=== PATIENT | male | born 1975 | race Caucasian/White ===

== ENCOUNTER 2018-03-07 20:43 | Emergency (ER) | payer BC ==
[~2018-03-07] VITALS: Ht 182.9 cm; Wt 105.7 kg
[2018-03-07 20:53] VITALS: BP 156/95
[2018-03-07 22:30] LABS: BASO # 0.1 x10^3/uL (0.0-0.2); BASO % 1 % (0-3); EOS # 0.4 x10^3/uL (0.0-0.7); EOS % 5 % (0-3); HEMATOCRIT 43.7 % (39.0-53.0); HEMOGLOBIN 15.4 g/dL (13.0-17.5); LYMPH # 1.8 x10^3/uL (1.0-4.8); LYMPH % 21 % (24-48); MEAN CORPUSCULAR HEMOGLOBIN 33 pg (25-35); MEAN CORPUSCULAR HGB CONC 35 g/dL (31-37); MEAN CORPUSCULAR VOLUME 92 fL (79-100); MONO # 0.9 x10^3/uL (0.0-1.1); MONO % 10 % (0-9); NEUT # 5.4 x10^3uL (1.8-7.7); NEUT % 64 % (31-73); PLATELET COUNT 228 x10^3/uL (140-400); RED BLOOD COUNT 4.73 x10^6/uL (4.30-5.70); RED CELL DISTRIBUTION WIDTH 12.7 % (11.5-14.5); WHITE BLOOD COUNT 8.6 x10^3/uL (4.0-11.0)
[2018-03-07 22:38] LABS: CALCIUM 9.3 mg/dL (8.5-10.1); CREATININE 1.2 mg/dL (0.7-1.3); GFR 66.7; POTASSIUM 3.8 mmol/L (3.5-5.1)
--- NOTE | 2018-03-07 23:02 | PHYS DOC ---
Past Medical History Past Medical History: Hypertension, Other Additional Past Medical Histor: TANACROSS Past Surgical History: No Surgical History Alcohol Use: Rarely Drug Use: None Adult General Chief Complaint Chief Complaint: LOWER EXTREMITY SWELLING HPI HPI Patient is a 42 year old male with history of hypertension, smoking, who presents today complaining of increased pain and redness to the left lower extremity. Patient states on Sunday this week he was seen at [facility] and was diagnosed with a superficial blood clot in his varicose vein in the left lower extremity, he states he was discharged with aspirin 325 which he is taking daily. He states his noted the area of redness on his leg has grown bigger and has increased pain rated at 3/10 described as throbbing and intermittent. Patient is also concerned this could be an evolving DVT. Patient denies any chest pain or shortness of breath. Denies any recent hospitalizations or surgeries, denies any low air or car rides. Denies any personal family history of DVTs. PCP Dr. Radha Martin Review of Systems Review of Systems Constitutional: Denies fever or chills [] Eyes: Denies change in visual acuity, redness, or eye pain [] HENT: Denies nasal congestion or sore throat [] Respiratory: Denies cough or shortness of breath [] Cardiovascular: No additional information not addressed in HPI [] GI: Denies abdominal pain, nausea, vomiting, bloody stools or diarrhea [] : Denies dysuria or hematuria [] Musculoskeletal: Reports increased pain, and redness to the left lower extremity. Integument: Denies rash or skin lesions [] Neurologic: Denies headache, focal weakness or sensory changes [] All other systems were reviewed and found to be within normal limits, except as documented in this note. Current Medications Current Medications Current Medications Medications (Trade) Dose Ordered Sig/Olive Start Time Stop Time Status Last Admin Dose Admin Cephalexin HCl (Keflex) 500 mg 1X ONCE 03/08/18 00:15 03/08/18 00:16 DC 03/08/18 00:08 500 MG Rivaroxaban (Xarelto) 15 mg 1X ONCE 03/08/18 00:15 03/08/18 00:16 DC 03/08/18 00:08 15 MG Allergies Allergies Allergies Coded Allergies Type Severity Reaction Last Updated Verified No Known Drug Allergies 04/10/14 No Physical Exam Physical Exam Constitutional: Well developed, well nourished, no acute distress, non-toxic appearance. [] HENT: Normocephalic, atraumatic, bilateral external ears normal, oropharynx moist, no oral exudates, nose normal, very TANA[place]OSS Eyes: PERRLA, EOMI, conjunctiva normal, no discharge. [] Neck: Normal range of motion, no tenderness, supple, no stridor. [] Cardiovascular:Heart rate regular rhythm, no murmur [] Lungs & Thorax: Bilateral breath sounds clear to auscultation [] Abdomen: Bowel sounds normal, soft, no tenderness, no masses, no pulsatile masses. [] Skin: Warm, dry, no erythema, no rash. [] Back: No tenderness, no CVA tenderness. [] Extremities: Left lower extremity with no obvious deformity. Proximal jiang with an area of mild erythema roughly 6 cm. The area is warm to touch and slightly tender, negative Homans sign to the left lower extremity. +2 left pedal pulse. Cap refill less than 2 seconds the left toes. Neurologic: Alert and oriented X 3, normal motor function, normal sensory function, no focal deficits noted. [] Psychologic: Affect normal, judgement normal, mood normal. [] Current Patient Data Vital Signs Vital Signs Date Time Temp Pulse Resp B/P (MAP) Pulse Ox O2 Delivery O2 Flow Rate FiO2 03/07/18 20:53 98.7 78 16 156/95 (115) 97 Room Air 98.7 Lab Values Laboratory Tests Test 03/07/18 22:20 White Blood Count 8.6 x10^3/uL (4.0-11.0) Red Blood Count 4.73 x10^6/uL (4.30-5.70) Hemoglobin 15.4 g/dL (13.0-17.5) Hematocrit 43.7 % (39.0-53.0) Mean Corpuscular Volume 92 fL (79-100) Mean Corpuscular Hemoglobin 33 pg (25-35) Mean Corpuscular Hemoglobin Concent 35 g/dL (31-37) Red Cell Distribution Width 12.7 % (11.5-14.5) Platelet Count 228 x10^3/uL (140-400) Neutrophils (%) (Auto) 64 % (31-73) Lymphocytes (%) (Auto) 21 % (24-48) L Monocytes (%) (Auto) 10 % (0-9) H Eosinophils (%) (Auto) 5 % (0-3) H Basophils (%) (Auto) 1 % (0-3) Neutrophils # (Auto) 5.4 x10^3uL (1.8-7.7) Lymphocytes # (Auto) 1.8 x10^3/uL (1.0-4.8) Monocytes # (Auto) 0.9 x10^3/uL (0.0-1.1) Eosinophils # (Auto) 0.4 x10^3/uL (0.0-0.7) Basophils # (Auto) 0.1 x10^3/uL (0.0-0.2) Prothrombin Time 14.0 SEC (11.7-14.0) Prothrombin Time INR 1.1 (0.8-1.1) PTT 32 SEC (24-38) Sodium Level 140 mmol/L (136-145) Potassium Level 3.8 mmol/L (3.5-5.1) Chloride Level 102 mmol/L (98-107) Carbon Dioxide Level 31 mmol/L (21-32) Anion Gap 7 (6-14) Blood Urea Nitrogen 10 mg/dL (8-26) Creatinine 1.2 mg/dL (0.7-1.3) Estimated GFR (Cockcroft-Gault) 66.7 Glucose Level 89 mg/dL (70-99) Calcium Level 9.3 mg/dL (8.5-10.1) Troponin I Quantitative < 0.017 ng/mL (0.000-0.055) Laboratory Tests 03/07/18 22:20 Laboratory Tests 03/07/18 22:20 EKG EKG [] Radiology/Procedures Radiology/Procedures [] Course & Med Decision Making Course & Med Decision Making Pertinent Labs and Imaging studies reviewed. (See chart for details) This is a 42-year-old female patient presenting to the ED today to be evaluated for increased pain and redness to the left lower extremity after being diagnosed with a superficial varicose vein blood clot 4 days ago at [facility]. Patient was encouraged to consider smoking cessation Labs are negative for any acute findings. Waiting for venous Doppler results. 23:[address] Robyn Carlson: Noted lead technologist in cytogenetics read which showed "partial clot and proximal greater saphenous vein 3.4 cm from its origin. Also clot seen in the varicose veins entire length of the calf" FINAL READ:IMPRESSION: 1. Partial obstructing thrombus in the proximal great saphenous vein and obstructing thrombus in the varicose veins throughout its length in the calf. Pedicles veins in the thyroid appear patent. 2. No DVT. Electronically signed by: Jericho Obando DO (03/07/2018 11:55 PM) [facility] DICTATED and SIGNED BY: JERICHO OBANDO DO DATE: 03/07/18 4690 patient is a smoker his swelling and symptoms of progress significantly in the last 4 days according to the . Due to this I think we should treat him with anticoagulation in condition apparently the greater saphenous vein clot is less than 5 cm from the deep system according to the above reading and this is also an indication for anticoagulation. Xarelto prescription was given in addition exam does show erythema and induration of the lateral calf and so up her prescription for Keflex was given and patient has an appointment with primary care doctor on Sunday for follow-up. Dragon Disclaimer Dragon Disclaimer This electronic medical record was generated, in whole or in part, using a voice recognition dictation system. Departure Departure Impression: Primary Impression: Smoking addiction Additional Impression: Superficial thrombophlebitis Disposition: HOME, SELF-CARE Condition: STABLE Referrals: RADHA MARTIN MD (PCP) Scripts Cephalexin (CEPHALEXIN) 500 Mg Tablet 1 TAB PO QID, #40 TAB Prov: ANA CARLSON MD 03/07/18 Rivaroxaban (XARELTO) 15 Mg Tablet 15 MG PO BID, #42 TAB THEN CONTACT YOUR DOCTOR FOR FURTHER PRESCRIPTION Prov: ANA CARLSON MD 03/07/18 Problem Qualifiers SHAGGY BHATTI APRN Mar 07, 2018 23:02 ANA CARLSON MD Mar 08, 2018 04:33
--- NOTE | 2018-03-07 23:58 | RAD ---
Ultrasound venous Doppler INDICATION:CLOT IN VARICOSE VN IN CALF DX SUNDAY AT DIFFERENT HOSPITAL. LATERAL CALF PAIN. TECHNIQUE: Grayscale, color Doppler and spectral waveform ultrasound images of the left lower extremities deep veins obtained. COMPARISON: None FINDINGS: The CFV is compressible and demonstrate evidence of blood flow. Focal distention of the proximal segment of the great saphenous vein with hypoechoic filling defect extending for length of approximately 3.4 cm with preserved blood flow. The SFV, popliteal vein and calf veins are patent. Thrombus is seen in the varicose veins throughout its length in the calf. IMPRESSION: 1. Partial obstructing thrombus in the proximal great saphenous vein and obstructing thrombus in the varicose veins throughout its length in the calf. Pedicles veins in the thyroid appear patent. 2. No DVT. Electronically signed by: Jericho Obando DO (03/07/2018 11:55 PM) [facility]
[2018-03-07] MEDS ORDERED: RIVA15TA PO (23:59)
[2018-03-07] MEDS ORDERED: CEPH500T PO (23:59)
[2018-03-08] MEDS ORDERED: CEPHALEXIN 250 MG CAPSULE. PO ONE (00:15)
[2018-03-08] MEDS ORDERED: RIVAROXABAN 15 MG TABLET. PO ONE (00:15)
--- NOTE | 2018-03-08 06:15 | EKG ---
[facility] [address] [place] [address] Test Date: 2018-03-07 Test Time: 22:59:54 Pat Name: MICH ALBA Department: Room: Gender: M Cork Sorter: [id number] : 1975 Requested By: SHAGGY BHATTI Order Number: [id number] Reading MD: Yosef Eldridge MD Measurements Intervals [place] Rate: 65 P: 33 VT: 108 QRS: 30 QRSD: 96 T: 22 QT: 374 QTc: 390 Interpretive Statements SINUS RHYTHM Electronically Signed On 03-08-2018 12:26:27 CDT by Yosef Eldridge MD
== END 2018-03-08 00:10 | disposition home or self-care (01) ==
LOC: ER 20:43
DX: I80.02 Phlebitis and thrombophlebitis of superficial vessels of left lower extremity (principal); F17.200 Nicotine dependence, unspecified, uncomplicated; I10 Essential (primary) hypertension
CPT/HCPCS: 36415; 80048; 84484; 85025; 85610; 85730; 93005; 93971; 99285-25

== ENCOUNTER 2018-10-15 20:21 | Emergency (ER) | payer BC ==
[~2018-10-15] VITALS: Ht 180.3 cm; Wt 111.1 kg
[~2018-10-15 20:21] MED LIST: CEPH500T PO; RIVA15TA PO
[2018-10-15 21:24] LABS: BASO # 0.1 x10^3/uL (0.0-0.2); BASO % 1 % (0-3); EOS # 0.6 x10^3/uL (0.0-0.7); EOS % 6 % (0-3); HEMATOCRIT 43.2 % (39.0-53.0); HEMOGLOBIN 14.7 g/dL (13.0-17.5); LYMPH # 1.9 x10^3/uL (1.0-4.8); LYMPH % 22 % (24-48); MEAN CORPUSCULAR HEMOGLOBIN 32 pg (25-35); MEAN CORPUSCULAR HGB CONC 34 g/dL (31-37); MEAN CORPUSCULAR VOLUME 92 fL (79-100); MONO # 0.9 x10^3/uL (0.0-1.1); MONO % 10 % (0-9); NEUT # 5.4 x10^3uL (1.8-7.7); NEUT % 61 % (31-73); PLATELET COUNT 270 x10^3/uL (140-400); RED BLOOD COUNT 4.67 x10^6/uL (4.30-5.70); RED CELL DISTRIBUTION WIDTH 12.9 % (11.5-14.5); WHITE BLOOD COUNT 8.8 x10^3/uL (4.0-11.0)
[2018-10-15] MEDS ORDERED: CLINDAMYCIN 600MG PREMIX 50 ML IV ONE (21:30)
[2018-10-15 21:35] LABS: CALCIUM 9.2 mg/dL (8.5-10.1); CREATININE 1.1 mg/dL (0.7-1.3); GFR 73.4; POTASSIUM 3.9 mmol/L (3.5-5.1)
[2018-10-15 21:41] LABS: ALBUMIN/GLOBULIN RATIO 1.1 (1.0-1.7); TOTAL BILIRUBIN 0.5 mg/dL (0.2-1.0); TOTAL PROTEIN 7.5 g/dL (6.4-8.2)
--- NOTE | 2018-10-15 21:43 | PHYS DOC ---
Past Medical History Past Medical History: Hypertension, Other Additional Past Medical Histor: AUGUSTINE, superficial thrombophlebitis Past Surgical History: No Surgical History Alcohol Use: Rarely Drug Use: None Adult General Chief Complaint Chief Complaint: LOWER EXT PAIN HPI HPI Patient is a 43 year old male who presents with acute onset L-leg pain with associated erythema, swelling and pain. He reports the pain, erythema and swelling began today at noon as a small location on the lateral leg but then when he got home from work and took his pants off, he noticed the redness and swelling was up to his thigh. He reports a history of superficial thrombophlebitis and associated cellulitis. He denies recent antibiotics use. He was taken off Xarelto for his previous clot two weeks ago. He denies f/c/n/v/diarrhea, CP/SOB, urinary symptoms, abdominal symptoms. He states he otherwise feels fine.[] Review of Systems Review of Systems Constitutional: Denies fever or chills [] Eyes: Denies change in visual acuity, redness, or eye pain [] HENT: Denies nasal congestion or sore throat [] Respiratory: Denies cough or shortness of breath [] Cardiovascular: No additional information not addressed in HPI [] GI: Denies abdominal pain, nausea, vomiting, bloody stools or diarrhea [] : Denies dysuria or hematuria [] Musculoskeletal: Denies back pain or joint pain [] Integument: Reports superficial thrombophlebitis with hx of cellulitis L leg. [] Neurologic: Denies headache, focal weakness or sensory changes [] Endocrine: Denies polyuria or polydipsia [] All other systems were reviewed and found to be within normal limits, except as documented in this note. Current Medications Current Medications Current Medications Medications (Trade) Dose Ordered Sig/Olive Start Time Stop Time Status Last Admin Dose Admin Clindamycin Phosphate 50 ml @ 100 mls/hr 1X ONCE 10/15/18 21:30 10/15/18 21:59 DC 10/15/18 21:32 100 MLS/HR Rivaroxaban (Xarelto) 15 mg 1X ONCE 10/15/18 23:15 10/15/18 23:16 DC 10/15/18 23:14 15 MG Allergies Allergies Allergies Coded Allergies Type Severity Reaction Last Updated Verified No Known Drug Allergies 04/10/14 No Physical Exam Physical Exam Constitutional: Well developed, well nourished, no acute distress, non-toxic appearance. [] HENT: Normocephalic, atraumatic, bilateral external ears normal, oropharynx moist, no oral exudates, nose normal. [] Eyes: PERRLA, EOMI, conjunctiva normal, no discharge. [] Neck: Normal range of motion, no tenderness, supple, no stridor. [] Cardiovascular:Heart rate regular rhythm, no murmur [] Lungs & Thorax: Bilateral breath sounds clear to auscultation [] Abdomen: Bowel sounds normal, soft, no tenderness, no masses, no pulsatile ma sses. [] Skin: Warm, dry, erythematous, caloric and swollen skin rash extending from 2 inches inferior to lateral knee and traveling to popliteal region and to anterior thigh. Rash is tender to palpation throughout. No open wound observed. 1x2 inch superficial thrombophlebitis present on L-lateral leg.[] Back: No tenderness, no CVA tenderness. [] Extremities: No pain or tenderness with LE compression. Diminished ROM with knee flexion, L-knee demonstrates swelling. [] Neurologic: Alert and oriented X 3, normal motor function, normal sensory function, no focal deficits noted. [] Psychologic: Affect normal, judgement normal, mood normal. [] Current Patient Data Vital Signs Vital Signs Date Time Temp Pulse Resp B/P (MAP) Pulse Ox O2 Delivery O2 Flow Rate FiO2 10/15/18 22:30 87 19 140/88 (105) 98 Room Air 10/15/18 20:41 98.8 98.8 Lab Values Laboratory Tests Test 10/15/18 20:55 White Blood Count 8.8 x10^3/uL (4.0-11.0) Red Blood Count 4.67 x10^6/uL (4.30-5.70) Hemoglobin 14.7 g/dL (13.0-17.5) Hematocrit 43.2 % (39.0-53.0) Mean Corpuscular Volume 92 fL (79-100) Mean Corpuscular Hemoglobin 32 pg (25-35) Mean Corpuscular Hemoglobin Concent 34 g/dL (31-37) Red Cell Distribution Width 12.9 % (11.5-14.5) Platelet Count 270 x10^3/uL (140-400) Neutrophils (%) (Auto) 61 % (31-73) Lymphocytes (%) (Auto) 22 % (24-48) L Monocytes (%) (Auto) 10 % (0-9) H Eosinophils (%) (Auto) 6 % (0-3) H Basophils (%) (Auto) 1 % (0-3) Neutrophils # (Auto) 5.4 x10^3uL (1.8-7.7) Lymphocytes # (Auto) 1.9 x10^3/uL (1.0-4.8) Monocytes # (Auto) 0.9 x10^3/uL (0.0-1.1) Eosinophils # (Auto) 0.6 x10^3/uL (0.0-0.7) Basophils # (Auto) 0.1 x10^3/uL (0.0-0.2) Sodium Level 136 mmol/L (136-145) Potassium Level 3.9 mmol/L (3.5-5.1) Chloride Level 100 mmol/L (98-107) Carbon Dioxide Level 26 mmol/L (21-32) Anion Gap 10 (6-14) Blood Urea Nitrogen 17 mg/dL (8-26) Creatinine 1.1 mg/dL (0.7-1.3) Estimated GFR (Cockcroft-Gault) 73.4 BUN/Creatinine Ratio 15 (6-20) Glucose Level 101 mg/dL (70-99) H Calcium Level 9.2 mg/dL (8.5-10.1) Total Bilirubin 0.5 mg/dL (0.2-1.0) Aspartate Amino Transferase (AST) 25 U/L (15-37) Alanine Aminotransferase (ALT) 30 U/L (16-63) Alkaline Phosphatase 107 U/L (46-116) Total Protein 7.5 g/dL (6.4-8.2) Albumin 4.0 g/dL (3.4-5.0) Albumin/Globulin Ratio 1.1 (1.0-1.7) Laboratory Tests 10/15/18 20:55 Laboratory Tests 10/15/18 20:55 EKG EKG [] Radiology/Procedures Radiology/Procedures [] Impressions: LEFT: No thrombus identified in the common femoral vein, femoral vein, popliteal vein or visualized calf veins. Thrombus is seen within a varicose vein. IMPRESSION: 1. Thrombus is seen within a varicose vein within the mid thigh extending to lower leg without extension into deep veins. Electronically signed by: Salazar Reyes MD (10/15/2018 11:09 PM) [facility] DICTATED and SIGNED BY: SALAZAR REYES MD DATE: 10/15/18 0565 (equipment tech noted to me similar to prior clot noted on last ultarsound in system) Course & Med Decision Making Course & Med Decision Making Pertinent Labs and Imaging studies reviewed. (See chart for details) 43-year-old male with superficial thrombophlebitis, hx of same. possible overlying cellulitis on exam had been on xarelto just stopped recently fairly significant size clinically rx clindamycin and restart xarelto, recommend f/u with vascular for consideration of proceudre given duration of his symptoms, i think he is stable for outpt mgmt. [] Dragon Disclaimer Dragon Disclaimer This electronic medical record was generated, in whole or in part, using a voice recognition dictation system. Departure Departure Impression: Primary Impression: Superficial thrombophlebitis Disposition: HOME, SELF-CARE Condition: STABLE Referrals: RADHA MONTEJO MD (PCP) Scripts Rivaroxaban (XARELTO) 20 Mg Tablet 20 MG PO DAILY, #30 TAB Prov: ANA GARDNER MD 10/15/18 Clindamycin Hcl (CLINDAMYCIN HCL) 300 Mg Capsule 1 CAP PO TID, #21 CAP Prov: ANA GARDNER MD 10/15/18 ANA GARDNER MD Oct 15, 2018 21:43
[2018-10-15 22:30] VITALS: BP 140/88
[2018-10-15] MEDS ORDERED: RIVA20TA2 PO (22:53)
[2018-10-15] MEDS ORDERED: CLIN300C8 PO (22:53)
--- NOTE | 2018-10-15 23:12 | RAD ---
INDICATION: Leg pain COMPARISON: 03/07/2018 TECHNIQUE: Grayscale, color and doppler ultrasound images were obtained of the left lower extremity venous vasculature. LEFT: No thrombus identified in the common femoral vein, femoral vein, popliteal vein or visualized calf veins. Thrombus is seen within a varicose vein. IMPRESSION: 1. Thrombus is seen within a varicose vein within the mid thigh extending to lower leg without extension into deep veins. Electronically signed by: Cliff Reyes MD (10/15/2018 11:09 PM) [facility]
[2018-10-15] MEDS ORDERED: RIVAROXABAN 15 MG TABLET. PO ONE (23:15)
== END 2018-10-15 23:12 | disposition home or self-care (01) ==
LOC: ER 20:21
DX: I80.02 Phlebitis and thrombophlebitis of superficial vessels of left lower extremity (principal); I10 Essential (primary) hypertension
CPT/HCPCS: 36415; 80053; 85025; 93971; 96365; 99285; J3490

== ENCOUNTER 2019-02-04 12:57 | Emergency (ER) | payer BC ==
[~2019-02-04] VITALS: Ht 175.3 cm; Wt 111.1 kg
[~2019-02-04 12:57] MED LIST changes: +CLIN300C8 PO; +RIVA20TA2 PO
--- NOTE | 2019-02-04 13:23 | PHYS DOC ---
Past Medical History Past Medical History: DVT Additional Past Medical Histor: IROQUOIS, superficial thrombophlebitis Past Surgical History: No Surgical History Alcohol Use: None Drug Use: None Adult General Chief Complaint Chief Complaint: LOWER EXT PAIN HPI HPI Patient is a 43 year old male presents with left lower leg pain, "knots", and swelling that worsened today. The patient also has when he describes as knots on his right leg and pain. The patient states that he has a history of superficial thrombophlebitis. He takes Xarelto 20 mg once a day for the last year. He states that he sees a pain specialist and his next appointment is Sunday. Has chest pain, denies shortness of breath, states that he has been worked up for reasons that he gets blood clots and they've always been his legs, and states that they're due to varicose veins in his upper leg. 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 Reports his pain as 4 out of 10 in severity and throbbing. Review of Systems Review of Systems Constitutional: Denies fever or chills [] Eyes: Denies change in visual acuity, redness, or eye pain [] HENT: Denies nasal congestion or sore throat [] Respiratory: Denies cough or shortness of breath [] Cardiovascular: No additional information not addressed in HPI [] GI: Denies abdominal pain, nausea, vomiting, bloody stools or diarrhea [] : Denies dysuria or hematuria [] Musculoskeletal: Denies back pain or joint pain [] Integument: Reports pain and knots to L leg, knots to R leg. Neurologic: Denies headache, focal weakness or sensory changes [] Endocrine: Denies polyuria or polydipsia [] Complete systems were reviewed and found to be within normal limits, except as documented in this note. Allergies Allergies Allergies Coded Allergies Type Severity Reaction Last Updated Verified No Known Drug Allergies 04/10/14 No Physical Exam Physical Exam Constitutional: Well developed, well nourished, no acute distress, non-toxic appearance. [] HENT: Normocephalic, atraumatic, bilateral external ears normal, oropharynx mois t, no oral exudates, nose normal. [] Eyes: PERRLA, EOMI, conjunctiva normal, no discharge. [] Neck: Normal range of motion, no tenderness, supple, no stridor. [] Cardiovascular:Heart rate regular rhythm, no murmur [] Lungs & Thorax: Bilateral breath sounds clear to auscultation [] Abdomen: Bowel sounds normal, soft, no tenderness, no masses, no pulsatile masses. [] Skin: Has varicose veins bilaterally on legs, no erythema noted. He does have swelling to the left leg. Back: No tenderness, no CVA tenderness. [] Extremities: No tenderness, no cyanosis, no clubbing, ROM intact, no edema. [] Neurologic: Alert and oriented X 3, normal motor function, normal sensory function, no focal deficits noted. [] Psychologic: Affect normal, judgement normal, mood normal. [] Current Patient Data Vital Signs Vital Signs Date Time Temp Pulse Resp B/P (MAP) Pulse Ox O2 Delivery O2 Flow Rate FiO2 02/04/19 13:25 97.9 79 16 154/105 (121) 96 Room Air 97.9 EKG EKG [] Radiology/Procedures Radiology/Procedures []Signed PATIENT: MICH ALBA ACCOUNT: [id number] : 1975 LOCATION: ER AGE: 43 SEX: M EXAM STATUS: REG ER ORD. PHYSICIAN: SADIE JACKSON APRN REASON: leg pain/edema, knots PROCEDURE: VENOUS LOWER EXT BILATERAL Bilateral Lower Extremity Venous Doppler Ultrasound History: Bilateral lower extremity edema Comparison: October 15, 2018 Procedure: Color flow, duplex, spectral analysis and 2D images are obtained with and without compression in the area of the common femoral vein, superficial femoral vein - femoral vein junction, main femoral vein (superficial femoral vein) and popliteal vein. Veins of the proximal calf are also imaged. Findings: There is multiple varicose veins in the left lower extremity which are patent and were previously thrombosed. There is normal duplex flow, color flow and compressibility of all remaining visualized vein segments. No evidence of deep venous thrombus is present. Impression: Varicose veins on the left. No evidence of DVT. Electronically signed by: Sumanth Narayan III, MD (02/04/2019 2:11 PM) [facility] DICTATED and SIGNED BY: SUMANTH NARAYAN III, MD DATE: 02/04/19 1411 Course & Med Decision Making Course & Med Decision Making Pertinent Labs and Imaging studies reviewed. (See chart for details) Will get venous ultrasound bilaterally. Ultrasound is negative. Will d/c home to follow up with primary care provider. Amado Disclaimer Amado Disclaimer This electronic medical record was generated, in whole or in part, using a voice recognition dictation system. Departure Departure Impression: Primary Impression: Leg pain Disposition: HOME, SELF-CARE Condition: STABLE Referrals: RADHA MONTEJO MD (PCP) Additional Instructions: Thank you for visiting [facility]. We appreciate you trusting us with your care. If any additional problems come up don't hesitate to return to visit us. Please follow up with your primary care provider so they can plan additional care if needed and know about the problem that you had. If symptoms worsen come back to the Emergency Department. Any concerning symptoms that start such as chest pain, shortness of air, weakness or numbness on one side of the body, running high fevers or any other concerning symptoms return to the ER. Problem Qualifiers Primary Impression: Leg pain Laterality: left Qualified Codes: M79.605 - Pain in left leg SADIE JACKSON APRN Feb 04, 2019 13:23
[2019-02-04 14:13] VITALS: BP 136/94
--- NOTE | 2019-02-04 14:14 | RAD ---
Bilateral Lower Extremity Venous Doppler Ultrasound History: Bilateral lower extremity edema Comparison: October 15, 2018 Procedure: Color flow, duplex, spectral analysis and 2D images are obtained with and without compression in the area of the common femoral vein, superficial femoral vein - femoral vein junction, main femoral vein (superficial femoral vein) and popliteal vein. Veins of the proximal calf are also imaged. Findings: There is multiple varicose veins in the left lower extremity which are patent and were previously thrombosed. There is normal duplex flow, color flow and compressibility of all remaining visualized vein segments. No evidence of deep venous thrombus is present. Impression: Varicose veins on the left. No evidence of DVT. Electronically signed by: Quinten Chavez III, MD (02/04/2019 2:11 PM) [facility]
== END 2019-02-04 14:30 | disposition home or self-care (01) ==
LOC: ER 12:57
DX: I83.812 Varicose veins of left lower extremity with pain (principal); I83.91 Asymptomatic varicose veins of right lower extremity; Z86.718 Personal history of other venous thrombosis and embolism
CPT/HCPCS: 93970; 99284-25

== ENCOUNTER 2020-07-06 15:18 | Emergency (ER) | payer BC ==
[~2020-07-06] VITALS: Ht 180.3 cm; Wt 121.0 kg
[~2020-07-06 15:18] MED LIST changes: -CLIN300C8 PO; +CLIN300C9 PO
--- NOTE | 2020-07-06 16:45 | RAD ---
XR CHEST 1V History: Reason: SOA / Spl. Instructions: / History: Comparison: None. Findings: No consolidation or pleural effusion. Normal heart size. No pneumothorax. Impression: 1. No acute cardiopulmonary process. Electronically signed by: Avni Evans DO (07/06/2020 4:42 PM) [facility]
[2020-07-06 17:05] LABS: BASO # 0.1 x10^3/uL (0.0-0.2); BASO % 1 % (0-3); EOS # 0.2 x10^3/uL (0.0-0.7); EOS % 2 % (0-3); HEMATOCRIT 41.1 % (39.0-53.0); HEMOGLOBIN 14.3 g/dL (13.0-17.5); LYMPH # 1.4 x10^3/uL (1.0-4.8); LYMPH % 17 % (24-48); MEAN CORPUSCULAR HEMOGLOBIN 32 pg (25-35); MEAN CORPUSCULAR HGB CONC 35 g/dL (31-37); MEAN CORPUSCULAR VOLUME 91 fL (79-100); MONO # 0.6 x10^3/uL (0.0-1.1); MONO % 8 % (0-9); NEUT # 5.7 x10^3/uL (1.8-7.7); NEUT % 72 % (31-73); PLATELET COUNT 247 x10^3/uL (140-400); RED BLOOD COUNT 4.51 x10^6/uL (4.30-5.70); RED CELL DISTRIBUTION WIDTH 12.9 % (11.5-14.5); WHITE BLOOD COUNT 7.9 x10^3/uL (4.0-11.0)
[2020-07-06 17:26] LABS: CALCIUM 8.9 mg/dL (8.5-10.1); CREATININE 1.2 mg/dL (0.7-1.3); GFR 65.8; POTASSIUM 3.6 mmol/L (3.5-5.1)
[2020-07-06 17:43] LABS: ALBUMIN 3.4 g/dL (3.4-5.0); ALBUMIN/GLOBULIN RATIO 1.1 (1.0-1.7); TOTAL BILIRUBIN 0.6 mg/dL (0.2-1.0); TOTAL PROTEIN 6.5 g/dL (6.4-8.2)
--- NOTE | 2020-07-06 18:07 | PHYS DOC ---
Past Medical History Past Medical History: DVT Additional Past Medical Histor: NIGHTMUTE (MIRNA HARRISON DO) Past Surgical History: Tonsillectomy (MIRNA HARRISON DO) Smoking Status: Current Every Day Smoker Alcohol Use: None Drug Use: None (MIRNA HARRISON DO) General Adult EDM: Chief Complaint: COUGH HPI: HPI: Patient is a 45 year old male who presented to ER for evaluation of cough and trouble breathing for several days. Patient denies any fever. Patient noticed some trace of blood when he coughed. Patient has history of DVT bilateral lower extremity, he is supposed to be on Xarelto. He ran out of his Xarelto 2 weeks ago. 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 He denies any chest pain, no abdominal pain. Patient is not sure if he been exposed to anybody who tested positive for COVID-19. (MIRNA HARRISON DO) Review of Systems: Review of Systems: Constitutional: Denies fever or chills. [] Eyes: Denies change in visual acuity. [] HENT: Denies nasal congestion or sore throat. [] Respiratory: Positive for cough and trouble breathing. Cardiovascular: Denies chest pain or edema. [] GI: Denies abdominal pain, nausea, vomiting, bloody stools or diarrhea. [] : Denies dysuria. [] Musculoskeletal: Denies back pain or joint pain. [] Integument: Denies rash. [] Neurologic: Denies headache, focal weakness or sensory changes. [] Endocrine: Denies polyuria or polydipsia. [] Lymphatic: Denies swollen glands. [] Psychiatric: Denies depression or anxiety. [] (MIRNA HARRISON DO) Heart Score: Risk Factors: Risk Factors: DM, Current or recent (<one month) smoker, HTN, HLP, family history of CAD, obesity. Risk Scores: Score 0 - 3: 2.5% MACE over next 6 weeks - Discharge Home Score 4 - 6: 20.3% MACE over next 6 weeks - Admit for Clinical Observation Score 7 - 10: 72.7% MACE over next 6 weeks - Early Invasive Strategies (MIRNA HARRISON DO) Allergies: Allergies: Allergies Coded Allergies Type Severity Reaction Last Updated Verified No Known Drug Allergies 04/10/14 No (MIRNA HARRISON DO) Physical Exam: PE: Constitutional: Well developed, well nourished, no acute distress, non-toxic appearance. [] HENT: Normocephalic, atraumatic, bilateral external ears normal, oropharynx moist, no oral exudates, nose normal. [] Eyes: PERRLA, EOMI, conjunctiva normal, no discharge. [] Neck: Normal range of motion, no tenderness, supple, no stridor. [] Cardiovascular:Heart rate regular rhythm, no murmur [] Lungs & Thorax: Bilateral breath sounds clear to auscultation [] Abdomen: Bowel sounds normal, soft, no tenderness, no masses, no pulsatile masses. [] Skin: Warm, dry, no erythema, no rash. [] Back: No tenderness, no CVA tenderness. [] Extremities: No tenderness, no cyanosis, no clubbing, ROM intact, no edema. NO CALF SWELLING. Neurologic: Alert and oriented X 3, normal motor function, normal sensory function, no focal deficits noted. [] Psychologic: Affect normal, judgement normal, mood normal. [] (MIRNA HARRISON DO) Current Patient Data: Labs: Laboratory Tests Test 07/06/20 16:50 White Blood Count 7.9 x10^3/uL (4.0-11.0) Red Blood Count 4.51 x10^6/uL (4.30-5.70) Hemoglobin 14.3 g/dL (13.0-17.5) Hematocrit 41.1 % (39.0-53.0) Mean Corpuscular Volume 91 fL (79-100) Mean Corpuscular Hemoglobin 32 pg (25-35) Mean Corpuscular Hemoglobin Concent 35 g/dL (31-37) Red Cell Distribution Width 12.9 % (11.5-14.5) Platelet Count 247 x10^3/uL (140-400) Neutrophils (%) (Auto) 72 % (31-73) Lymphocytes (%) (Auto) 17 % (24-48) L Monocytes (%) (Auto) 8 % (0-9) Eosinophils (%) (Auto) 2 % (0-3) Basophils (%) (Auto) 1 % (0-3) Neutrophils # (Auto) 5.7 x10^3/uL (1.8-7.7) Lymphocytes # (Auto) 1.4 x10^3/uL (1.0-4.8) Monocytes # (Auto) 0.6 x10^3/uL (0.0-1.1) Eosinophils # (Auto) 0.2 x10^3/uL (0.0-0.7) Basophils # (Auto) 0.1 x10^3/uL (0.0-0.2) D-Dimer (Ewa) 0.35 ug/mlFEU (0.00-0.50) Sodium Level 142 mmol/L (136-145) Potassium Level 3.6 mmol/L (3.5-5.1) Chloride Level 106 mmol/L (98-107) Carbon Dioxide Level 28 mmol/L (21-32) Anion Gap 8 (6-14) Blood Urea Nitrogen 17 mg/dL (8-26) Creatinine 1.2 mg/dL (0.7-1.3) Estimated GFR (Cockcroft-Gault) 65.8 BUN/Creatinine Ratio 14 (6-20) Glucose Level 90 mg/dL (70-99) Calcium Level 8.9 mg/dL (8.5-10.1) Total Bilirubin 0.6 mg/dL (0.2-1.0) Aspartate Amino Transferase (AST) 24 U/L (15-37) Alanine Aminotransferase (ALT) 39 U/L (16-63) Alkaline Phosphatase 104 U/L (46-116) Total Protein 6.5 g/dL (6.4-8.2) Albumin 3.4 g/dL (3.4-5.0) Albumin/Globulin Ratio 1.1 (1.0-1.7) Laboratory Tests 07/06/20 16:50 Laboratory Tests 07/06/20 16:50 Vital Signs: Vital Signs Date Time Temp Pulse Resp B/P (MAP) Pulse Ox O2 Delivery O2 Flow Rate FiO2 07/06/20 16:00 98.1 91 161/104 (123) 96 98.1 07/06/20 15:51 20 Room Air (MIRNA HARRISON DO) EKG: EKG: [] (MIRNA HARRISON DO) Radiology/Procedures: Radiology/Procedures: [][facility] [address] [place] [address] IMAGING REPORT Signed PATIENT: MICH ALBA ACCOUNT: [id number] : 1975 LOCATION: ER AGE: 45 SEX: M EXAM STATUS: REG ER ORD. PHYSICIAN: MIRNA HARRISON DO REASON: SOA PROCEDURE: CHEST AP ONLY XR CHEST 1V History: Reason: SOA / Spl. Instructions: / History: Comparison: None. Findings: No consolidation or pleural effusion. Normal heart size. No pneumothorax. Impression: 1. No acute cardiopulmonary process. Electronically signed by: Avni Evans DO (07/06/2020 4:42 PM) [facility] DICTATED and SIGNED BY: AVNI EVANS DO DATE: 07/06/20 [id number] (MIRNA HARRISON DO) Radiology/Procedures: CTA scan of the Chest with Contrast (Pulmonary Embolism protocol) 07/06/2020 Clinical History: Shortness of breath and cough. Technique: After the intravenous administration of 100 cc of Omnipaque 350, contiguous, 0.625 mm axial sections were obtained through the chest. 2 mm axial and 3D MIP coronal and sagittal reconstructed images were obtained. One or more of the following individualized dose reduction techniques were utilized for this study: 1. Automated exposure control. 2. Adjustment of the mA and/or kV according to patient size. 3. Use of iterative reconstruction technique. Findings: There is suboptimal opacification of the pulmonary arteries with contrast limiting the study. No obvious filling defect is seen within the major branches of either pulmonary artery. There is no CT evidence of pulmonary embolism. The heart and thoracic aorta are within normal limits. Patchy atelectasis and/or infiltrate is seen involving the medial aspect of the left lower lobe. No area of consolidation is seen. No pleural effusion or pneumothorax is seen. Impression: There is no CT evidence of pulmonary embolism. (CLARKE NIETO MD) Course & Med Decision Making: Course & Med Decision Making Pertinent Labs and Imaging studies reviewed. (See chart for details) Patient is a 45-year-old male who presented to ER for evaluation of cough, trouble breathing, he had a history of DVT, he has elevated Xarelto for 2 weeks. Patient had his Xarelto prescription refilled today, available for pickup at the pharmacy today. Due to his history of blood clot disorder, and being off of his Xarelto for 2 weeks, suspicious is high for PE, therefore will obtain a CTA of the chest to evaluate for PE. patient care is being endorsed over to Dr. Diamante vanegas at shift change, awaiting CTA CHEST. (MIRNA HARRISON DO) Course & Med Decision Making Accepted care at shift change from Dr. Harrison, pending CTA. Patient's vital signs are stable. CTA shows an evolving infiltrate in the left lower lobe of his lung. Discussed findings with patient. Patient states he is not able to take large pills and discussed doxycycline capsules that he can mix in with food. Patient agrees to that plan. 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 (CLARKE NIETO MD) Dragon Disclaimer: Dragon Disclaimer: This electronic medical record was generated, in whole or in part, using a voice recognition dictation system. (MIRNA HARRISON DO) Departure Departure Impression: Primary Impression: Cough with hemoptysis Additional Impression: CAP (community acquired pneumonia) Disposition: 01 MD HOME SELF CARE/HOMELESS Condition: STABLE Referrals: RADHA MONTEJO MD (PCP) Patient Instructions: Pneumomediastinum Scripts Doxycycline Hyclate (DOXYCYCLINE HYCLATE) 100 Mg Capsule 1 CAP PO BID for antibiotic for 7 Days, #14 CAP Prov: CLARKE NIETO MD 07/06/20 MIRNA HARRISON DO Jul 06, 2020 18:07 CLARKE NIETO MD Jul 06, 2020 19:25
[2020-07-06] MEDS ORDERED: IOHEXOL 350 MG/ML 100 ML VIAL. IV ONE (18:15)
[2020-07-06] MEDS ORDERED: CONTRAST GIVEN. MC PRN (18:15)
--- NOTE | 2020-07-06 18:56 | RAD ---
CTA scan of the Chest with Contrast (Pulmonary Embolism protocol) 07/06/2020 Clinical History: Shortness of breath and cough. Technique: After the intravenous administration of 100 cc of Omnipaque 350, contiguous, 0.625 mm axia l sections were obtained through the chest. 2 mm axial and 3D MIP coronal and sagittal reconstructed images were obtained. One or more of the following individualized dose reduction techniques were utilized for this study: 1. Automated exposure control. 2. Adjustment of the mA and/or kV according to patient size. 3. Use of iterative reconstruction technique. Findings: There is suboptimal opacification of the pulmonary arteries with contrast limiting the stud y. No obvious filling defect is seen within the major branches of either pulmonary artery. There is n o CT evidence of pulmonary embolism. The heart and thoracic aorta are within normal limits. Patchy atelectasis and/or infiltrate is seen involving the medial aspect of the left lower lobe. No a haylie of consolidation is seen. No pleural effusion or pneumothorax is seen. Impression: There is no CT evidence of pulmonary embolism. Electronically signed by: Alok Mckeon MD (07/06/2020 6:54 PM) [id number]
[2020-07-06] MEDS ORDERED: RIVAROXABAN 10 MG TABLET. PO STA (19:16)
[2020-07-06] MEDS ORDERED: DOXY100C2 PO (19:24)
[2020-07-06] MEDS ORDERED: ACET5SOL PO (19:29)
[2020-07-06 19:40] VITALS: BP 148/93
== END 2020-07-06 19:50 | disposition home or self-care (01) ==
LOC: ER 15:18
DX: J18.9 Pneumonia, unspecified organism (principal); R04.2 Hemoptysis; F17.200 Nicotine dependence, unspecified, uncomplicated; Z90.89 Acquired absence of other organs; Z86.718 Personal history of other venous thrombosis and embolism
CPT/HCPCS: 36415; 71045; 71275; 80053; 85025; 85379; 99285; Q9967